=== PATIENT | male | born 1990 | race Caucasian/White ===

== ENCOUNTER 2016-10-11 11:22 | Inpatient (IN) | payer MEDICAID, OTHER ==
[2016-10-11] MEDS ORDERED: LORazepam 2 MG/ML MDV IVPUSH ONE ×2 (11:44→15:21)
[2016-10-11] MEDS ORDERED: Thiamine 100 MG Tab PO ONE (11:45)
[2016-10-11] MEDS: Sodium Chloride 0.9% 10 ML Syringe FLUSH PRN ×2 (12:03→16:56)
[2016-10-11] MEDS: Sodium Chloride 0.9% 1,000 ML IV ONE ×2 (12:04→12:53)
[2016-10-11 12:15] LABS: ACETAMINOPHEN < 10 ug/mL (10-30)
[2016-10-11] MEDS ORDERED: Sodium Chloride 0.9% 1,000 ML IV ONE (12:51)
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
[2016-10-11] MEDS ORDERED: Potassium Chloride 20 MEQ Tab.ER PO ONE (13:26)
[2016-10-11] MEDS ORDERED: Ibuprofen 600 MG Tab PO PRN (14:45)
[2016-10-11] MEDS ORDERED: Acetaminophen 325 MG Tab PO PRN (14:45)
[2016-10-11] MEDS ORDERED: Lidocaine/Prilocaine 2.5-2.5% Crm 5 GM Tube TOP ONE (15:45)
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
[2016-10-11] MEDS: D5 1/2 NS w/ 20 mEq/L KCl 1,000 ML IV SCH ×2 (17:00→21:24)
[2016-10-12] MEDS: D5 1/2 NS w/ 20 mEq/L KCl 1,000 ML IV SCH ×2 (01:30→05:46)
[2016-10-12] MEDS ORDERED: Nicotine 21 MG/24 Hr Patch TRDERM SCH (09:00)
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
[2016-10-12] MEDS ORDERED: LORazepam 1 MG Tab PO PRN (10:32)
[2016-10-12] MEDS: LORazepam 2 MG/ML MDV IVPUSH PRN ×3 (11:07→19:29)
[2016-10-12] MEDS: Sodium Chloride 0.9% 10 ML Syringe FLUSH PRN ×2 (11:07→19:29)
--- NOTE | 2016-10-12 12:14 | CR ---
INDICATION: Pain with movement, proximal thumb. LEFT THUMB: Three views of the left thumb were obtained and revealed no significant bone or joint abnormality. MTDD
--- NOTE | 2016-10-12 12:16 | CR ---
INDICATION: Possible aspiration. CHEST: An AP upright wheelchair view of the chest was obtained. The heart and mediastinum, as well as the bony structures appear to be grossly intact. A definite active infiltrate or effusion was not identified. IMPRESSION: No active disease. MTDD
--- NOTE | 2016-10-12 12:17 | CR ---
INDICATION: Trauma, pain, point of elbow after a fall. RIGHT ELBOW: Three views of the right elbow revealed no significant bone or joint abnormality. No fracture or dislocation was seen. No joint effusion was noted. MTDD
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
[2016-10-12] MEDS ORDERED: Ondansetron 4 MG/2 ML SDV IVPUSH ONE (15:30)
[2016-10-12 17:52] VITALS: BP 133/77
== END 2016-10-12 19:41 | DRG 914 ==
LOC: FB.ED 11:22 → FB.ICU 14:46
PROVIDERS: ADMIT Family Medicine; ATTEND Family Medicine
PROC: HZ2ZZZZ Detoxification Services for Substance Abuse Treatment (ICD-10-PCS; principal; 2016-10-11)
DX: T14.91 Suicide attempt (principal); F10.120 Alcohol abuse with intoxication, uncomplicated; Y90.0 Blood alcohol level of less than 20 mg/100 ml; X83.8XXA Intentional self-harm by other specified means, initial encounter; Z59.0 Homelessness; F48.9 Nonpsychotic mental disorder, unspecified; F17.210 Nicotine dependence, cigarettes, uncomplicated; Z87.898 Personal history of other specified conditions; M25.521 Pain in right elbow; M25.542 Pain in joints of left hand
CPT/HCPCS: 36415; 36600; 70360; 71010; 72125; 73080-RT; 73140-FA; 80048; 80305; 82803; 82962; 84443; 85025; 85610; 86803; 87389; 93005; 96360; 96361; 99285; A9270-GY; G0480; J2060; J2405; J3480; J7040; J7050